=== PATIENT | male | born 2000 | race Caucasian/White ===

== ENCOUNTER 2021-04-20 10:41 | Outpatient (CLI) | payer OTHER | END 2021-04-20 10:42 | disposition home or self-care (01) | LOC: CT 10:41 | PROVIDERS: ATTEND Orthopaedic Surgery | DX: S62.002A Unspecified fracture of navicular [scaphoid] bone of left wrist, initial encounter for closed fracture (principal) ==

== ENCOUNTER 2021-04-21 14:36 | Outpatient (CLI) | payer OTHER ==
[2021-04-22 00:17] LABS: SARS-CoV-2 PCR by NAA Not Detected (NotDetected)
== END 2021-04-21 14:37 | disposition home or self-care (01) ==
LOC: LABBT 14:36
PROVIDERS: ATTEND Otolaryngology Plastic Surgery within the Head & Neck
DX: Z01.812 Encounter for preprocedural laboratory examination (principal); J34.2 Deviated nasal septum; S02.2XXS Fracture of nasal bones, sequela; S09.92XA Unspecified injury of nose, initial encounter; G47.20 Circadian rhythm sleep disorder, unspecified type; R06.83 Snoring; J34.89 Other specified disorders of nose and nasal sinuses; J34.3 Hypertrophy of nasal turbinates; J35.1 Hypertrophy of tonsils; Z20.822 Contact with and (suspected) exposure to COVID-19
CPT/HCPCS: U0003; U0005

== ENCOUNTER 2021-04-26 06:37 | Day surgery (SDC) | payer OTHER ==
[2021-04-21 10:30] VITALS: BMI 24.3
[2021-04-26] MEDS ORDERED: AFRIN NASAL MIST 15 ML BOT ONE ×2 (06:45→06:52)
[2021-04-26] MEDS ORDERED: Xylocaine 1% w/ Epi 1:100K 10 ML VIAL ONE (06:45)
[2021-04-26] MEDS ORDERED: Bacitracin Zinc Ointment 30 gm TUBE ONE (06:45)
[2021-04-26] MEDS ORDERED: Fentanyl 250 MCG/5 ML VIAL ONE ×2 (08:08→09:35)
[2021-04-26] MEDS ORDERED: Dexmedetomidine 200 MCG/2 ML VIAL ONE (08:09)
[2021-04-26] MEDS ORDERED: Dexamethasone 20 MG/5 ML VIAL ONE (08:15)
[2021-04-26] MEDS ORDERED: Rocuronium Bromide 10 MG/ML (10ML VIAL) ONE (08:15)
[2021-04-26] MEDS ORDERED: Glycopyrrolate 0.2 MG/ML 5 ML SYRINGE ONE (08:15)
[2021-04-26] MEDS ORDERED: ePHEDrine 50 MG/ML VIAL ONE (08:15)
[2021-04-26] MEDS ORDERED: Lidocaine 1% PF 5 ML VIAL ONE (08:15)
[2021-04-26] MEDS ORDERED: PROPOFOL 200 MG/20 ML VIAL ONE (08:15)
[2021-04-26] MEDS ORDERED: Ondansetron PF 4 MG/2 ML Vial ONE (08:15)
[2021-04-26] MEDS ORDERED: methylPREDNISolone Acetate 40 mg/ml Vial ONE (08:28)
[2021-04-26] MEDS ORDERED: HYDROcodone/Acetaminophen 5/325 mg Tablet ONE (11:09)
== END 2021-04-26 11:50 | disposition home or self-care (01) ==
LOC: SDC 06:37
PROVIDERS: ATTEND Otolaryngology Plastic Surgery within the Head & Neck
PROC: 09SM0ZZ Reposition Nasal Septum, Open Approach (ICD-10-PCS; principal; 2021-04-26)
PROC: 0NSBXZZ Reposition Nasal Bone, External Approach (ICD-10-PCS; principal; 2021-04-26)
PROC: 09TL0ZZ Resection of Nasal Turbinate, Open Approach (ICD-10-PCS; principal; 2021-04-26)
DX: S02.2XXA Fracture of nasal bones, initial encounter for closed fracture (principal); J34.2 Deviated nasal septum; J34.3 Hypertrophy of nasal turbinates; J34.89 Other specified disorders of nose and nasal sinuses; F17.200 Nicotine dependence, unspecified, uncomplicated; G47.20 Circadian rhythm sleep disorder, unspecified type; J35.1 Hypertrophy of tonsils; X58.XXXA Exposure to other specified factors, initial encounter
CPT/HCPCS: J1100; J2405; J2704; J2920; J3010; J3490